=== PATIENT | male | born 1985 | race Caucasian/White ===

== ENCOUNTER 2020-09-27 12:54 | Emergency (ER) | payer OTHER ==
[~2020-09-27] VITALS: Ht 185.4 cm; Wt 98.0 kg
[2020-09-27] MEDS ORDERED: LORazepam 2 MG/ML, 1ML ONE ×3 (13:26→15:55)
[2020-09-27] MEDS ORDERED: THIAMINE 100MG TABLET ONE (13:26)
[2020-09-27] MEDS ORDERED: THIAMINE 100MG TABLET PO ONE (13:30)
[2020-09-27] MEDS: LORazepam 2 MG/ML, 1ML IVPush PRN ×3 (13:30→15:58)
[2020-09-27] MEDS ORDERED: SODIUM CHLORIDE FLUSH 10ML SYR IVF ONE (13:30)
[2020-09-27] MEDS ORDERED: SODIUM CHLORIDE 0.9% 1,000ML IVBOLUS ONE ×2 (13:30→16:00)
[2020-09-27 13:47] LABS: BASOPHILS % (AUTO) 1 % (0-1); EOSINOPHILS % (AUTO) 0 % (1-7); LYMPHOCYTES % (AUTO) 15 % (22-44); MEAN CORPUSCULAR HEMOGLOBIN 33.6 pg (27.5-34.5); MEAN CORPUSCULAR HGB CONC 35.3 g/dL (33.2-36.2); MEAN PLATELET VOLUME 8.9 fL (7.4-10.4); MONOCYTES % (AUTO) 7 % (2-9); NEUTROPHILS % (AUTO) 76 % (42-75); PLATELET COUNT 170 x10^3/uL (130-400); RED BLOOD COUNT 4.92 x10^6/uL (4.38-5.82); RED CELL DISTRIBUTION WIDTH 12.5 % (9.4-14.8)
[2020-09-27 13:48] LABS: MD NO
[2020-09-27 13:56] LABS: ALANINE AMINOTRANSFERASE 65 U/L (12-78); ALBUMIN 4.2 g/dL (3.4-5.0); ANION GAP 10 mmol/L (5-15); CALCIUM 9.3 mg/dL (8.5-10.1); CHLORIDE 104 mmol/L (98-107); CREATININE 1.07 mg/dL (0.7-1.3)
[2020-09-27 14:00] LABS: ALKALINE PHOSPHATASE 53 U/L (45-117); BILIRUBIN,TOTAL 1.2 mg/dL (0.2-1.0); TOTAL PROTEIN 8.2 g/dL (6.4-8.2)
--- NOTE | 2020-09-27 14:54 | NUR ---
PT MEDICATED W ATIVAN. PT TREMULOUS, VSS
--- NOTE | 2020-09-27 16:13 | NUR ---
PT RESTING, SECOND LITER INFUSING. MEDICATED W ATIVAN
[2020-09-27 20:52] VITALS: BP 142/96
== END 2020-09-27 20:54 | disposition home or self-care (01) ==
LOC: ED 13:57
DX: F10.139 Alcohol abuse with withdrawal, unspecified (principal); Y90.0 Blood alcohol level of less than 20 mg/100 ml; R45.4 Irritability and anger; I10 Essential (primary) hypertension
CPT/HCPCS: 36415; 80053; 80320; 83690; 85025; 96374; 96376; 99285; J2060; J7030; 96361; G0480